=== PATIENT | male | born 1970 | race Caucasian/White ===

== ENCOUNTER 2021-12-16 08:00 | Outpatient (CLI) | payer MEDICAID ==
--- NOTE | 2021-12-17 13:04 | XRAY Report ---
PROCEDURE: Lumbar Spine 2 View INDICATIONS: LOW BACK PX TECHNIQUE: 3 views of the lumbar spine were acquired. COMPARISON: None. FINDINGS: Bones: 5 [id number] vertebrae are present. There is Grade I retrolithesis of L2 on L3 measurin g 9 mm, 3 mm retrolithesis of L3 on L4. Multilevel moderate to severe multilevel degenerative disc a nd foraminal narrowing. Anterior osteophytes are present at L1-L3. No vertebral body compression fr actures. No suspicious bony lesions. Soft tissues: Overlying bowel gas pattern is normal. No suspicious soft tissue calcifications. IMPRESSION: Multilevel degenerative changes. Reviewed by: Kacy Maldonado MD on 12/17/2021 1:03 PM PDT Approved by: Kacy Maldonado MD on 12/17/2021 1:03 PM PDT Station ID: [id number]
== END 2021-12-16 23:59 | disposition home or self-care (01) ==
LOC: DI.N 08:00
PROVIDERS: ATTEND Family Medicine
DX: M43.16 Spondylolisthesis, lumbar region (principal); M47.816 Spondylosis without myelopathy or radiculopathy, lumbar region; M51.36 Other intervertebral disc degeneration, lumbar region; M48.061 Spinal stenosis, lumbar region without neurogenic claudication

== ENCOUNTER 2022-02-23 14:40 | Outpatient (CLI) | payer MEDICAID ==
--- NOTE | 2022-02-24 15:44 | MRI Report ---
PROCEDURE: Lumbar Spine W/O INDICATIONS: RETROLISTHESIS OF VERTEBRA TECHNIQUE: Noncontrast sagittal T1 spin echo and T2 fast echo, sagittal STIR, axial T1 and T2 fast spin echo thr ough the lumbar spine. In cases with scoliosis, additional coronal T2 fast spin echo may be performe d. COMPARISON: 12/16/2021 FINDINGS: Retrolisthesis of L5 on S1 measuring 3 mm. Otherwise lumbar vertebral body height and alignment. No s uspicious focal marrow signal abnormality or bone marrow edema. Normal position and appearance of the conus. Prevertebral and paraspinous soft tissues are within normal limits. Atrophic appearance of th e right kidney. T12-L1: No spinal canal or neural foraminal stenosis. L1-L2: No spinal canal or neural foraminal stenosis. L2-L3: No spinal canal stenosis. L3-L4: Diffuse disc bulge flattens the ventral thecal sac. No mass effect upon the traversing L4 ne rve roots. Foraminal components of the disc bulge and facet hypertrophy combine to produce mild bilat eral neural foraminal stenosis. L4-L5: Diffuse disc bulge flattens the ventral thecal sac without mass effect upon the traversing L 5 nerve roots. No neural foraminal stenosis on the left. On the right, foraminal components of the di sc bulge and facet hypertrophy combining to produce neural foraminal narrowing. L5-S1: Diffuse disc bulge with a superimposed broad-based posterior disc protrusion produce mild di splacement of the descending right S1 nerve roots in the right subarticular zone. Foraminal component of the disc material combines with neural foraminal height loss to produce mild neural foraminal noble rowing on the right. IMPRESSION: Mild lower lumbar spine degenerative changes with no evidence of focal nerve root impingement. Retrolisthesis of L5 on S1 measuring 3 mm, not seen on comparison radiographs. Previously described grade 1 retrolisthesis of L2 on L3, seen on comparison radiographs, has no corre late on this supine MRI study. Likewise, 3 mm retrolisthesis of L3 on L4 has no MRI correlate on the current study. Please note that upright plain radiographic listhesis can frequently not be reproduced on supine imaging modalities. This change in alignment can suggest dynamic instability. Reviewed by: Delgado Miller MD on 02/24/2022 3:43 PM PDT Approved by: Delgado Miller MD on 02/24/2022 3:43 PM PDT Station ID: [id number]
== END 2022-02-23 14:41 | disposition home or self-care (01) ==
LOC: DI 14:40
PROVIDERS: ATTEND Family Medicine
DX: M47.816 Spondylosis without myelopathy or radiculopathy, lumbar region (principal); M43.17 Spondylolisthesis, lumbosacral region; M51.27 Other intervertebral disc displacement, lumbosacral region; M51.36 Other intervertebral disc degeneration, lumbar region; M51.37 Other intervertebral disc degeneration, lumbosacral region

== ENCOUNTER 2022-06-04 09:16 | Outpatient (CLI) | payer MEDICAID ==
[2022-06-04 12:01] LABS: BASOPHILS % (AUTO) 0.6 %; EOSINOPHILS # (AUTO) 0.1 10^3/uL (0.0-0.7); EOSINOPHILS % (AUTO) 1.4 %; HGB - HEMOGLOBIN 15.4 g/dL (14.0-18.0); LYMPHOCYTES # (AUTO) 2.6 10^3/uL (1.5-3.5); MEAN CORPUSCULAR HGB CONC 34.2 g/dL (32.0-36.0); MEAN CORPUSCULAR VOLUME 93.4 fL (80.0-94.0); MEAN PLATELET VOLUME 10.1 fL (7.4-11.4); MONOCYTES # (AUTO) 0.6 10^3/uL (0.0-1.0); MONOCYTES % (AUTO) 8.4 %; NEUTROPHILS # (AUTO) 3.2 10^3/uL (1.5-6.6); NEUTROPHILS % (AUTO) 49.3 %; PLT - PLATELET COUNT 277 10^3/uL (130-450); RED BLOOD COUNT 4.82 10^6/uL (4.70-6.10); WHITE BLOOD COUNT 6.6 x10^3/uL (4.8-10.8)
[2022-06-04 12:30] LABS: ALBUMIN 4.2 g/dL (3.2-5.5); ALBUMIN/GLOBULIN RATIO 1.2 (1.0-2.2); ALKALINE PHOSPHATASE 82 IU/L (42-121); ALT ALANINE AMINOTRANSFERASE 29 IU/L (10-60); AST ASPARTATE AMINOTRANSFERASE 35 IU/L (10-42); BILIRUBIN,TOTAL 0.6 mg/dL (0.2-1.0); BUN - BLOOD UREA NITROGEN 23 mg/dL (6-20); CALCIUM 9.5 mg/dL (8.5-10.3); CARBON DIOXIDE - CO2 30 mmol/L (21-32); CHLORIDE 99 mmol/L (101-111); CHOLESTEROL 120 mg/dL; CREATININE 1.6 mg/dL (0.6-1.2); GFR - MDRD 46 (>89); GLUCOSE 115 mg/dL (70-100); HDL CHOLESTEROL 30 mg/dL; LDL CHOLESTEROL,CALCULATED 74 mg/dL; LDL/HDL RATIO 2.5 (<3.6); POTASSIUM 3.5 mmol/L (3.5-5.0); SODIUM 139 mmol/L (135-145); TOTAL PROTEIN 7.8 g/dL (6.7-8.2); TRIGLYCERIDES 80 mg/dL; VLDL CHOLESTEROL 16 mg/dL
[2022-06-04 12:39] LABS: THYROID STIMULATING HORMONE 1.57 uIU/mL (0.34-5.60)
[2022-06-04 13:56] LABS: ESTIMATED AVERAGE GLUCOSE 134 mg/dL (70-100); HEMOGLOBIN A1c% 6.3 % (4.27-6.07)
[2022-06-07 17:08] LABS: HCV AB >11.0 s/co ratio (0.0-0.9); HCV IU/ML HCV Not Detected IU/mL (.)
== END 2022-06-04 09:17 | disposition home or self-care (01) ==
LOC: LAB.N 09:16
PROVIDERS: ATTEND Physician Assistant
DX: E78.5 Hyperlipidemia, unspecified (principal); R73.03 Prediabetes; Z12.5 Encounter for screening for malignant neoplasm of prostate; F41.8 Other specified anxiety disorders; Z87.19 Personal history of other diseases of the digestive system
CPT/HCPCS: 36415; 80053; 80061; 83036; 83721; 84153; 84443; 85025; 86803; 87522

== ENCOUNTER 2022-06-19 11:00 | Day surgery (SDC) | payer MEDICAID ==
--- NOTE | 2022-06-19 11:46 | ANESTHESIA ---
Pre-Anesthesia VS, & Labs - Diagnosis screening - Procedure colonoscopy Height: 6 ft 2 in Weight (kg): 109.9 kg Body Mass Index: 31.1 BMI Classification: Obese - NPO >8 hours, Other (liquids until 929) Home Medications and Allergies Home Medications: Ambulatory Orders Atorvastatin [Lipitor] 10 mg PO DAILY 06/17/22 Gabapentin [Neurontin] 300 mg PO HS 06/17/22 Losartan [Cozaar] 25 mg PO DAILY 06/17/22 Lurasidone HCl [Latuda] 40 mg PO DAILY 06/17/22 Omeprazole 20 mg PO DAILY 06/17/22 clonazePAM [Clonazepam] 0.5 mg PO HS 06/17/22 hydroCHLOROthiazide [Hydrochlorothiazide] 25 mg PO DAILY 06/17/22 valACYclovir [Valtrex] 500 mg PO DAILY 06/17/22 Atorvastatin [Lipitor] 10 mg PO DAILY 06/17/22 Gabapentin [Neurontin] 300 mg PO HS 06/17/22 Losartan [Cozaar] 25 mg PO DAILY 06/17/22 Lurasidone HCl [Latuda] 40 mg PO DAILY 06/17/22 Omeprazole 20 mg PO DAILY 06/17/22 clonazePAM [Clonazepam] 0.5 mg PO HS 06/17/22 hydroCHLOROthiazide [Hydrochlorothiazide] 25 mg PO DAILY 06/17/22 valACYclovir [Valtrex] 500 mg PO DAILY 06/17/22 Allergies/Adverse Reactions: Allergies Allergy/AdvReac Type Severity Reaction Status Date / Time No Known Drug Allergies Allergy Verified 06/17/22 13:17 Anes History & Medical History - Anesthetic History Anesthesia Complications: reports: No previous complications Family history of Anesthesia Complications: Denies Family history of Malignant Hyperthermia: Denies - Medical History Cardiovascular: reports: Hypertension, High cholesterol Musculoskeletal: reports: Chronic back pain Endocrine/Autoimmune: reports: Other Psychosocial: reports: Anxiety, Anxiolytic - Surgical History Orthopedic: reports: Other Exam General: Alert, Oriented x3, Cooperative Dental: WNL Mouth Openin Fingerbreadth Neck Mobility: Normal Mallampati classification: II Thyromental Distance: 4-6 cm Respiratory: Lungs clear Cardiovascular: Regular rate Plan Anesthesia Type: General, Total IV Consent for Procedure(s) Verified and Reviewed: Yes Code Status: Attempt Resuscitation ASA classification: 2-Mild systemic disease Is this case an emergency?: No
[2022-06-19] MEDS ORDERED: PROPOFOL 500 MG/50 ML 500 MG/50 ML VIAL ONE (11:47)
[2022-06-19] MEDS ORDERED: LACTATED RINGERS 1,000 ML IV ONE ×2 (11:50→12:46)
[2022-06-19] MEDS ORDERED: MIDAZOLAM 2 MG/2 ML VIAL ONE (11:57)
[2022-06-19] MEDS ORDERED: LIDOCAINE-PF 2% 10 ML AMP SUBQ ONE (12:33)
[2022-06-19 13:05] VITALS: BP 124/83
--- NOTE | 2022-06-19 13:43 | ANESTHESIA POST OP EVALUATION ---
Anesthesia Post Eval - Post Anesthesia Eval Vitals: Last Vital Signs Temp 36.3 C L 06/19/22 12:44 Pulse 73 06/19/22 13:04 Resp 12 06/19/22 13:04 BP 124/83 H 06/19/22 13:04 Pulse Ox 99 06/19/22 13:04 O2 Flow Rate CV Function Including HR & BP: Stable Pain Control: Satisfactory Nausea & Vomiting: Negative Mental Status: Baseline Respiratory Status: Airway Patent Hydration Status: Satisfactory Anesthesia Complications: None
== END 2022-06-19 11:01 | disposition home or self-care (01) ==
LOC: SDS 11:00
PROVIDERS: ATTEND Surgery
PROC: 0DBL8ZX Excision of Transverse Colon, Via Natural or Artificial Opening Endoscopic, Diagnostic (ICD-10-PCS; 2022-06-19)
PROC: 0DBN8ZX Excision of Sigmoid Colon, Via Natural or Artificial Opening Endoscopic, Diagnostic (ICD-10-PCS; 2022-06-19)
PROC: 0DBM8ZX Excision of Descending Colon, Via Natural or Artificial Opening Endoscopic, Diagnostic (ICD-10-PCS; 2022-06-19)
PROC: 0DBK8ZX Excision of Ascending Colon, Via Natural or Artificial Opening Endoscopic, Diagnostic (ICD-10-PCS; principal; 2022-06-19 12:30)
DX: Z12.11 Encounter for screening for malignant neoplasm of colon (principal); D12.2 Benign neoplasm of ascending colon; D12.3 Benign neoplasm of transverse colon; D12.4 Benign neoplasm of descending colon; D12.5 Benign neoplasm of sigmoid colon; I10 Essential (primary) hypertension; E66.9 Obesity, unspecified; Z68.31 Body mass index [BMI] 31.0-31.9, adult
CPT/HCPCS: 45380; 45385; J7120

== ENCOUNTER 2023-01-23 09:00 | Outpatient (CLI) | payer MEDICAID ==
--- NOTE | 2023-01-23 12:30 | Ultrasound Report ---
PROCEDURE: Aorta Screening INDICATIONS: NICOTINE ABUSE TECHNIQUE: Real time scanning was performed of the aorta and iliac arteries, with image documentatio n. COMPARISON: None. FINDINGS: Aorta: Proximal aortic diameter measures 1.9 x 2.3 cm. Mid-aorta measures 1.7 x 2.0 cm. Distal aor tic diameter is 1.5 x 1.8 cm. Iliac arteries: Right common iliac artery measures 1.0 x 1.2 cm. Left common iliac artery measures 1.0 x 1.2 cm. IMPRESSION: No abdominal aortic aneurysm. Reviewed by: Michael Zhong on 01/23/2023 11:28 AM MOHSEN Approved by: Michael Zhong on 01/23/2023 11:28 AM MOHSEN Station ID: [id number]
== END 2023-01-23 09:01 | disposition home or self-care (01) ==
LOC: DI 09:00
PROVIDERS: ATTEND Physician Assistant
DX: Z13.6 Encounter for screening for cardiovascular disorders (principal); F17.200 Nicotine dependence, unspecified, uncomplicated

== ENCOUNTER 2023-03-25 08:59 | Outpatient (CLI) | payer MEDICAID ==
[2023-03-25 11:55] LABS: BASOPHILS # (AUTO) 0.1 10^3/uL (0.0-0.1); BASOPHILS % (AUTO) 0.6 %; EOSINOPHILS # (AUTO) 0.1 10^3/uL (0.0-0.7); EOSINOPHILS % (AUTO) 1.6 %; HGB - HEMOGLOBIN 14.7 g/dL (14.0-18.0); LYMPHOCYTES % (AUTO) 35.1 %; MEAN CORPUSCULAR HEMOGLOBIN 31.5 pg (27.0-31.0); MEAN CORPUSCULAR HGB CONC 33.4 g/dL (32.0-36.0); MEAN CORPUSCULAR VOLUME 94.2 fL (80.0-94.0); MEAN PLATELET VOLUME 10.1 fL (7.4-11.4); MONOCYTES # (AUTO) 0.6 10^3/uL (0.0-1.0); NEUTROPHILS # (AUTO) 4.7 10^3/uL (1.5-6.6); NEUTROPHILS % (AUTO) 55.5 %; PLT - PLATELET COUNT 261 10^3/uL (130-450); RED BLOOD COUNT 4.67 10^6/uL (4.70-6.10); RED CELL DISTRIBUTION WIDTH 11.9 % (12.0-15.0); WHITE BLOOD COUNT 8.5 x10^3/uL (4.8-10.8)
[2023-03-25 12:10] LABS: ALBUMIN 4.1 g/dL (3.2-5.5); ALBUMIN/GLOBULIN RATIO 1.4 (1.0-2.2); ALKALINE PHOSPHATASE 80 IU/L (42-121); ALT ALANINE AMINOTRANSFERASE 14 IU/L (10-60); AST ASPARTATE AMINOTRANSFERASE 16 IU/L (10-42); BILIRUBIN,TOTAL 0.3 mg/dL (0.2-1.0); BUN - BLOOD UREA NITROGEN 19 mg/dL (6-20); CALCIUM 9.9 mg/dL (8.5-10.3); CARBON DIOXIDE - CO2 38 mmol/L (21-32); CHLORIDE 102 mmol/L (101-111); CHOL/HDL RATIO 3.2 (<5.0); CHOLESTEROL 131 mg/dL; CREATININE 1.3 mg/dL (0.6-1.3); GFR - MDRD 58 (>89); GLUCOSE 110 mg/dL (74-104); HDL CHOLESTEROL 41 mg/dL; LDL CHOLESTEROL,CALCULATED 72 mg/dL; LDL/HDL RATIO 1.8 (<3.6); POTASSIUM 3.5 mmol/L (3.5-4.5); SODIUM 143 mmol/L (135-145); TOTAL PROTEIN 7.1 g/dL (6.4-8.9); TRIGLYCERIDES 91 mg/dL (48-352); VLDL CHOLESTEROL 18 mg/dL
[2023-03-25 12:24] LABS: THYROID STIMULATING HORMONE 1.98 uIU/mL (0.34-5.60)
[2023-03-25 12:25] LABS: ESTIMATED AVERAGE GLUCOSE 114 mg/dL (70-100); HEMOGLOBIN A1c% 5.6 % (4.27-6.07)
== END 2023-03-25 09:00 | disposition home or self-care (01) ==
LOC: LAB.N 08:59
PROVIDERS: ATTEND Nurse Practitioner
DX: F33.2 Major depressive disorder, recurrent severe without psychotic features (principal)
CPT/HCPCS: 36415; 80053; 80061; 83036; 83721; 84443; 85025

== ENCOUNTER 2023-06-04 08:27 | Outpatient (CLI) | payer MEDICAID | END 2023-06-04 08:28 | disposition home or self-care (01) | LOC: LAB.N 08:27 | PROVIDERS: ATTEND Physician Assistant | DX: R41.3 Other amnesia (principal) | CPT/HCPCS: 36415; 82607 ==

== ENCOUNTER 2023-06-23 15:32 | Outpatient (CLI) | payer MEDICAID ==
--- NOTE | 2023-06-23 15:50 | Sleep Patient Instructions ---
Sleep Center Visit Summary - Patient Visit Information Reason for Visit: Initial consult for evaluation of sleep disordered breathing and other sleep issues. - Patient Instructions Instructions Attached: Sleep Study, Sleep Study Home Monitor Additional Instructions: You will be completing a sleep study, either an in-lab polysomnography (PSG) or home sleep study (HST). You will follow-up in the sleep care office after the sleep study is completed to hear the results and talk about therapy, if needed. You will be called by our office staff to schedule this appointment, but you may contact us with any questions. - Clinic Information Contact: [facility] [address] [place] [id number] [email or web address] T: [phone]
--- NOTE | 2023-06-23 15:58 | SLEEP CARE CONSULTATION ---
Information from patient questionnaire entered by Loco Gupta. I have reviewed and concur with the information entered by Loco Gupta. This document represents the service I personally performed and the decisions made by me, Isabelle Spann ARNP. History of Present Illness Service Date and Time: 06/23/2023 1540 Reason for Visit: New patient Chief Complaint: reports: Unrefreshed sleep, Snoring, Fatigue, Frequent awakenings at night Date of Onset: 2YRS Usual bedtime: 10PM Time it takes to fall asleep: 20MIN Snores at night: Yes Observed to quit breathing while asleep: No Sleeps alone due to snoring: No Number of times waking at night: 5 Reasons for waking at night: reports: Snoring, Pain, Other (UNKNOWN). denies: Choking, Gasping for air Toss, Turn, or Twitch while sleeping: Yes Recalls having dreams: Yes (not very often) Usually gets out of bed at: 6AM; weekends [id number] Feels refreshed in the morning: No Morning headache: No Sleepy or fatigued during the day: Yes Ever fallen asleep while driving: Yes (drowsy driving; no accidents recently; once in 90s) Takes day naps: No Dreams during day naps: No Prior sleep studies: No Additional HPI information: I had the pleasure of seeing FRANK SESAY today regarding the possibility of him having a sleep disorder. His current complaints are fatigue, frequent night awakenings, snoring and unrefreshed sleep. His tells him that he is snoring loudly. He just does not feel that he sleeps well at night. There are some nights that he feels like he is just in a very light sleep. He wakes up frequently at night but is able to go back to sleep easily. He normally feels somewhat rested in the morning and is not very tired during the day. He states he is able to go to sleep easier since he started medications for his depression this last year. - Parasomnia Symptoms Ever been unable to move upon waking from sleep: No Walks in sleep: No Talks in sleep: No Ever acted out dreams in sleep: No Ever felt weak in the knees when startled or emotional: No Bothered by creepy, crawly, restless sensations in legs: No Problems with memory or concentration: Yes (both; memory is probably worse) Subjective Initial [place] Sleepiness Scale score: 7 (06/23/23) Past Medical History Past Medical History: reports: Hypertension, Anxiety, Depression, GERD, Attent ion deficit (ADHD), Other (HYPERLIPDEMIA) Social History The patient's occupation is a [employer]. Patient is Single and lives in . Have you smoked in the past 12 months: No Cigarettes per day (20/pack): 20 Years of smokin Quit date: 2019 Smoking Pack Years: 26.0 Alcohol use: No Caffeine use: Yes Caffeine amount and frequency: 8 CANS SODA QD Family History Family history of sleep disordered breathing: Yes Family Hx Sleep Apnea: Father: Snoring, Grandparent: Snoring Allergies and Home Medications Known drug allergies: Yes (LAMICTAL) Drug allergies reviewed: Yes Home medication list reviewed: Yes Allergy and home medication list: Allergies No Known Drug Allergies Allergy (Verified 06/22/23 13:58) Home Medications Medication Instructions Recorded Confirmed Last Taken Type Atorvastatin [Lipitor] 10 mg PO DAILY 06/17/22 06/17/22 06/17/22 History Gabapentin [Neurontin] 300 mg PO HS 06/17/22 06/17/22 06/17/22 History Losartan [Cozaar] 25 mg PO DAILY 06/17/22 06/17/22 06/17/22 History Omeprazole 20 mg PO DAILY 06/17/22 06/17/22 06/17/22 History clonazePAM [Clonazepam] 0.5 mg PO HS 06/17/22 06/17/22 06/17/22 History hydroCHLOROthiazide 25 mg PO DAILY 06/17/22 06/17/22 06/17/22 History [Hydrochlorothiazide] Mirtazapine See Rx Instructions .ROUTE .COMPLEX 06/23/23 06/23/23 Unknown History buPROPion HCL [Bupropion Xl] See Rx Instructions .ROUTE .COMPLEX 06/23/23 06/23/23 Unknown History cloNIDine [Catapres] See Rx Instructions .ROUTE .COMPLEX 06/23/23 06/23/23 Unknown History Review of Systems Weight gain over past 5 years: 40 Weight loss over past 5 years: 30 Cardiovascular: reports: high blood pressure Respiratory: reports: chronic cough (clear throat) Gastrointestinal: reports: heartburn Neurological: denies: headaches Psychiatric: reports: Attention Deficit Hyperactivity, anxiety, depression Ear/Nose/Throat: reports: wisdom teeth removed. denies: tonsillectomy Immunologic: denies: allergies to food or environment Physical Exam Vital signs obtained and entered by: LOCO Gonzalez MA Blood Pressure: 122/70 (LEFT ARM) Cuff size: regular Heart Rate: 66 O2 Saturation: 97 Height: 6 ft 0.5 in Weight: 232 lb 9.6 oz Body Mass Index: 31.1 BMI Classification: Obese Neck circumference: 16.5 Mouth and throat: narrow oropharynx Soft palate: long Hard palate: normal Uvula: normal Uvula visualization: 50% Mallampati Class II Tongue: enlarged in size with teeth blair on lateral edges Tonsils: small Neck: normal w/o lymphadenopathy or thyromegaly Heart: regular rate and rhythm Lungs: clear bilaterally Impression and Plan 1. Suspected Obstructive Sleep Apnea-Hypopnea Syndrome, as suggested by a history of loud and irregular snoring, frequent awakening during the night, unrefreshed sleep and cognitive impairment. Narrow oropharynx and obesity are common predisposing factors for obstructive sleep apnea-hypopnea syndrome. I recommend proceeding to polysomnography to confirm the diagnosis and to assess severity. If the patient has significant sleep disordered breathing, a manual CPAP titration study will also be performed to find the optimal treatment pressure. I informed the patient of what the sleep studies involve and after some discussion, obtained agreement to proceed. The pathophysiology of obstructive sleep apnea-hypopnea syndrome was discussed with the patient and health risks of cardiovascular and cerebrovascular disease if not treated. Risks of drowsy driving discussed in detail and patient advised to avoid long distance driving and to ear pull machine operator at the first sign of drowsiness. Patient agreed to plan. * Schedule polysomnography +- manual CPAP titration study and return in 1-2 weeks after the study to discuss result and initiate therapy. * Avoid long distance driving or driving when feeling sleepy. * Avoid alcohol, sedative and muscle relaxant around bedtime. * Attempt to lose weight. * Review instructions provided by trained office staff on how to prepare for the sleep study. * Return for follow-up after sleep study completed. Counseling Topics: Weight loss health impact Plan: PSG/HST Visit Type: In Office Time Spent with Patient (minutes): 31 Provider Statement: I spent 100% of the Face to Face Visit with the patient with greater than 50% spent counseling the patient and coordination of care.
[2023-06-23 16:19] VITALS: BP 122/70; O2SAT 97
== END 2023-06-23 15:33 | disposition home or self-care (01) ==
LOC: SC 15:32
PROVIDERS: ATTEND Nurse Practitioner Family
DX: G47.8 Other sleep disorders (principal); R06.83 Snoring; R41.89 Other symptoms and signs involving cognitive functions and awareness; R53.83 Other fatigue; E66.9 Obesity, unspecified; Z68.31 Body mass index [BMI] 31.0-31.9, adult; Z87.891 Personal history of nicotine dependence
CPT/HCPCS: 99203; 99212

== ENCOUNTER 2023-10-13 09:51 | Outpatient (CLI) | payer MEDICAID | END 2023-10-13 09:52 | disposition home or self-care (01) | LOC: SC 09:51 | PROVIDERS: ATTEND Nurse Practitioner Family | DX: R09.02 Hypoxemia (principal) | CPT/HCPCS: 95806 ==

== ENCOUNTER 2023-12-15 15:24 | Outpatient (CLI) | payer MEDICAID ==
--- NOTE | 2023-12-15 15:45 | Sleep Patient Instructions ---
Sleep Center Visit Summary - Patient Visit Information Reason for Visit: Sleep study follow-up - Patient Instructions Instructions Attached: Snoring Tips Prevent Additional Instructions: Your sleep study today was negative for significant sleep disordered breathing. However, you did have elevated respiratory episodes when sleeping on your back. You should avoid sleeping on your back to control these respiratory episodes. You were found to have episodes of snoring. There are different ways to control snoring including weight loss, oral devices made by a dentist or surgical options through ENT specialist. You should not use oral devices that do not fit properly because they can affect your bite. You should also check insurance coverage of oral devices for snoring because they may not be cover well. You may obtain a referral to an ENT specialist through your primary provider. Follow-up as needed. - Clinic Information Contact: [facility] [address] [place] [address] [email or web address] T: [phone]
--- NOTE | 2023-12-15 15:48 | SLEEP CARE CONSULTATION ---
Information from patient questionnaire entered by Chaparrita Gupta. I have reviewed and concur with the information entered by Chaparrita Gupta. This document represents the service I personally performed and the decisions made by , Isabelle Spann ARNP. History of Present Illness Service Date and Time: 12/15/20231523 Initial [place] Sleepiness Scale score: 7 (06/23/23) Current [place] Sleepiness Scale score: 9 (12/15/23) Additional HPI information: FRANK SESAY returns for follow up and results of the recently performed home sleep study. The patient was informed of the following findings: No significant sleep disordered breathing with an average AHI of 3.8 and josephine oxygen saturation of 88%. His supine AHI was 18.3. I explained the pathophysiology behind obstructive sleep apnea. Patient does not have sleep apnea and was advised how weight gain could increase the risk of developing sleep apnea in the future. I strongly encouraged the patient to lose weight. Patient does not have significant sleep disordered breathing but has elevated AHI in supine position so advised positional therapy. Methods to achieve positional management therapy were discussed; such as, positioning with pillows, wearing a T-shirt with tennis balls sewn into the back or commercially available products. Patient has light snoring. Snoring can be reduced by weight loss. Snoring can also be treated with an oral appliance from a dentist. Advised to check insurance coverage. In addition, an ENT evaluation can be do to see if other treatment is indicated. Patient does not drink alcohol. Patient was cautioned about risks of drowsy driving until sleepiness symptoms resolve. Sleep Study - Results Type of Sleep Study: Home sleep study (10/13/23) Prior sleep studies: No Polysomnography/Home Sleep Study results: Physician Impression: The quality of the study is good. The length of the study is adequate (> 240 minutes). Please also see the tabulated and graphic data. 1. No significant sleep disordered breathing, with an AHI of 3.8/hr and josephine SaO2 of 88%. During the study, the patient had 24 apneas (24 obstructive, 0 central, 0 mixed) and 4 hypopneas. The longest episode lasted 64.0 seconds. The few respiratory events occurred almost exclusively during supine sleep (supine AHI was 18.3 and non-supine, 2.74). 2. Hypoxemia (ICD-10 R09.02), minimal, with the lowest oxygen saturation of 88 % and 1.5 minutes with SaO2 under 90%. Baseline oxygen saturation was normal (Average oxygen saturation was 93%). Allergies and Home Medications Known drug allergies: Yes (as listed) Drug allergies reviewed: Yes Home medication list reviewed: Yes (Prozac) Allergy and home medication list: Allergies terbinafine [From Lamisil] Allergy (Verified 12/13/23 10:42) Review of Systems Review of systems same as previous: Yes (NO CHANGE) Physical Exam Vital signs obtained and entered by: CHAPARRITA Gonzalez MA Blood Pressure: 146/88 (LEFT ARM) Cuff size: regular Heart Rate: 65 O2 Saturation: 98 Height: 6 ft 0.5 in Weight: 212 lb Body Mass Index: 28.3 BMI Classification: Overweight Impression and Plan 1. Snoring but no significant sleep disordered breathing. However, patient had elevated supine AHI and should avoid sleeping supine. I offered to do an in lab sleep study if he decided to continue evaluation of his sleep issues. He will talk to and let us know. Patient advised that often weight loss will reduce snoring as well as apnea risk. An oral appliance can also be used for snoring. This would require a dental consultation. Patient cautioned not to use other online appliances as can cause bite issues. A list of accredited dentists in area and one local dentist who makes oral appliances given. Patient is advised to check if insurance will cover. An ENT consult can also be helpful to determine if any other treatment is an option. 2. Overweight, unspecified. Currently patients BMI is 28.3. Obesity increases the risk of apnea, CPAP pressure requirements and overall health risks especially cardiovascular and diabetes. Thus patient is advised to lose weight. * Avoid sleeping supine * Attempt to lose weight * The patient is cautioned about driving until sleepiness is completely resolved. * Return as needed for follow up. Counseling Topics: Sleeping position, Weight loss health impact Follow up with Sleep Care in: as needed Visit Type: In Office Time Spent with Patient (minutes): 21 Provider Statement: I spent 100% of the Face to Face Visit with the patient with greater than 50% spent counseling the patient and coordination of care.
[2023-12-15 15:56] VITALS: BP 146/88; O2SAT 98
== END 2023-12-15 15:25 | disposition home or self-care (01) ==
LOC: SC 15:24
PROVIDERS: ATTEND Nurse Practitioner Family
DX: R06.83 Snoring (principal); E66.3 Overweight; Z68.28 Body mass index [BMI] 28.0-28.9, adult
CPT/HCPCS: 99212; 99213

== ENCOUNTER 2024-02-24 07:08 | Outpatient (CLI) | payer MEDICAID ==
[2024-02-24 12:12] LABS: BASOPHILS # (AUTO) 0.1 10^3/uL (0.0-0.1); BASOPHILS % (AUTO) 0.7 %; EOSINOPHILS # (AUTO) 0.1 10^3/uL (0.0-0.7); EOSINOPHILS % (AUTO) 1.6 %; HCT - HEMATOCRIT 44.5 % (42.0-52.0); HGB - HEMOGLOBIN 14.9 g/dL (14.0-18.0); LYMPHOCYTES # (AUTO) 2.2 10^3/uL (1.5-3.5); MEAN CORPUSCULAR HEMOGLOBIN 31.8 pg (27.0-31.0); MEAN CORPUSCULAR HGB CONC 33.5 g/dL (32.0-36.0); MEAN CORPUSCULAR VOLUME 94.9 fL (80.0-94.0); MEAN PLATELET VOLUME 10.2 fL (7.4-11.4); MONOCYTES # (AUTO) 0.7 10^3/uL (0.0-1.0); MONOCYTES % (AUTO) 9.6 %; NEUTROPHILS # (AUTO) 3.8 10^3/uL (1.5-6.6); PLT - PLATELET COUNT 258 10^3/uL (130-450); RED BLOOD COUNT 4.69 10^6/uL (4.70-6.10); RED CELL DISTRIBUTION WIDTH 12.3 % (12.0-15.0); WHITE BLOOD COUNT 6.9 x10^3/uL (4.8-10.8)
[2024-02-24 12:31] LABS: ALBUMIN 4.3 g/dL (3.2-5.5); ALBUMIN/GLOBULIN RATIO 1.5 (1.0-2.2); ALKALINE PHOSPHATASE 103 IU/L (42-121); ALT ALANINE AMINOTRANSFERASE 17 IU/L (10-60); AST ASPARTATE AMINOTRANSFERASE 18 IU/L (10-42); BILIRUBIN,TOTAL 0.4 mg/dL (0.2-1.0); BUN - BLOOD UREA NITROGEN 19 mg/dL (6-20); CALCIUM 10.4 mg/dL (8.5-10.3); CARBON DIOXIDE - CO2 34 mmol/L (21-32); CHLORIDE 102 mmol/L (101-111); CHOL/HDL RATIO 2.9 (<5.0); CHOLESTEROL 114 mg/dL; CREATININE 1.3 mg/dL (0.6-1.3); GFR - MDRD 58 (>89); GLUCOSE 121 mg/dL (74-104); HDL CHOLESTEROL 40 mg/dL; LDL CHOLESTEROL,CALCULATED 56 mg/dL; LDL/HDL RATIO 1.4 (<3.6); LIPASE 34 U/L (11-82); POTASSIUM 3.3 mmol/L (3.5-4.5); SODIUM 141 mmol/L (135-145); TOTAL PROTEIN 7.2 g/dL (6.4-8.9); TRIGLYCERIDES 88 mg/dL; VLDL CHOLESTEROL 18 mg/dL
[2024-02-24 12:42] LABS: THYROID STIMULATING HORMONE 1.76 uIU/mL (0.34-5.60)
[2024-02-24 14:12] LABS: ESTIMATED AVERAGE GLUCOSE 108 mg/dL (70-100); HEMOGLOBIN A1c% 5.4 % (4.27-6.07)
[2024-02-26 16:08] LABS: T-TRANSGLUTAMINASE (TTG) IGA <2 U/mL (0-3); T-TRANSGLUTAMINASE (TTG) IGG 5 U/mL (0-5)
[2024-03-01 13:11] LABS: HCV AB Reactive (Non Reactive); HCV IU/ML HCV Not Detected IU/mL (.)
== END 2024-02-24 07:09 | disposition home or self-care (01) ==
LOC: LAB.N 07:08
PROVIDERS: ATTEND Physician Assistant
DX: R19.5 Other fecal abnormalities (principal); E78.5 Hyperlipidemia, unspecified; R73.03 Prediabetes; Z12.5 Encounter for screening for malignant neoplasm of prostate; Z86.19 Personal history of other infectious and parasitic diseases
CPT/HCPCS: 36415; 80053; 80061; 83036; 83690; 83721; 84153; 84443; 85025; 86364; 86803; 87522

== ENCOUNTER 2024-02-27 08:00 | Outpatient (CLI) | payer MEDICAID ==
[2024-02-28 13:07] LABS: H. PYLORIS ANTIGEN STL NEGATIVE (Negative)
[2024-02-28 13:14] LABS: FECAL OCCULT BLOOD (FIT) POSITIVE (NEGATIVE)
[2024-03-02 06:11] LABS: GIARDIA LAMBLIA AG EIA Negative (Negative)
[2024-03-05 15:07] LABS: OVA + PARASITE EXAM Final report (.)
== END 2024-02-27 23:59 | disposition home or self-care (01) ==
LOC: LAB.N 08:00
PROVIDERS: ATTEND Physician Assistant
DX: R19.5 Other fecal abnormalities (principal)
CPT/HCPCS: 82274; 83993; 87177; 87209; 87329; 87338